=== PATIENT | male | born 1995 | race Caucasian/White ===

== ENCOUNTER 2017-02-02 11:34 | Inpatient (IN) | payer OTHER ==
[~2017-02-02] VITALS: Ht 170.2 cm; Wt 80.0 kg
[2017-02-02 13:24] LABS: MEAN CORPUSCULAR HEMOGLOBIN 28.4 pg (27.0-33.0); MEAN CORPUSCULAR HGB CONC 35.2 g/dl (32.0-36.5); MEAN CORPUSCULAR VOLUME 80.7 fl (80.0-96.0); RED CELL DISTRIBUTION WIDTH 12.5 % (11.5-14.5); WHITE BLOOD COUNT 6.5 10^3/uL (4.0-10.0)
[2017-02-02 13:50] LABS: METHADONE URINE NEGATIVE (NEGATIVE)
[2017-02-02 13:55] LABS: ALBUMIN 4.2 GM/DL (3.2-5.2); ALBUMIN/GLOBULIN RATIO 1.27 (1.00-1.93); ALKALINE PHOSPHATASE 94 U/L (45-117); ALT/SGPT 23 U/L (12-78); ANION GAP 6 MEQ/L (8-16); AST/SGOT 19 U/L (15-37); BILIRUBIN,DIRECT 0.3 MG/DL (0.0-0.2); BILIRUBIN,TOTAL 1.5 MG/DL (0.2-1.0); BLOOD UREA NITROGEN 18 MG/DL (7-18); CALCIUM LEVEL 9.1 MG/DL (8.5-10.1); CARBON DIOXIDE LEVEL 30 MEQ/L (21-32); CHLORIDE LEVEL 103 MEQ/L (98-107); CREATININE FOR GFR 1.01 MG/DL (0.70-1.30); GLUCOSE, FASTING 105 MG/DL (70-105); POTASSIUM SERUM 3.7 MEQ/L (3.5-5.1); SODIUM LEVEL 139 MEQ/L (136-145); TOTAL PROTEIN 7.5 GM/DL (6.4-8.2)
[2017-02-02 16:05] VITALS: BP 143/74
[2017-02-02 16:33] VITALS: BP 143/74
[2017-02-02] MEDS ORDERED: MOM 30ML SUSPENSION UDC PO PRN (17:15)
[2017-02-02] MEDS ORDERED: MAALOX 30 ML SUSP *UDC PO PRN (17:15)
[2017-02-02] MEDS ORDERED: traZODone 50 MG TAB PO PRN (17:15)
[2017-02-03 06:26] VITALS: BP 125/72
--- NOTE | 2017-02-03 10:14 | HPEPDOC ---
[facility] Medical History & Physical Date of Admission Feb 02, 2017 History and Physical PCP: [facility] ATTENDING: Dr. Mo Truong HPI:22yoM admitted to [facility] for depressive disorder, being medically examined today. No acute medical complaints today. Denies any fevers, chills, weakness, fatigue, MERINO, CP, SOB, cough, palpitations, abdominal pain, N/V/D or changes in bowel or bladder habits. PMHx: Depression Chronic right hip pain PSHX: Denies SOCHX: Resides in: [facility], from [place] Marital Status: Single Kids: None Employment: Active duty Tobacco use: Denies ETOH: Denies Illicit Drugs: Denies IV Drug Use: Denies Tattoos done unprofessionally: Denies FAMHX: Mother: Alive, well Father: Alive, well Siblings: Alive, well Children: None Unexpected deaths due to medical reasons: None. ROS: As noted in HPI, otherwise 11pt ROS of systems reviewed and remarkable only for chronic right hip pain which the patient states is controlled with Tylenol and stretching exercises as needed. PE: GEN: 22 yo M, appears stated age. Well-nourished, well developed. No acute distress. Alert and oriented x 3. Pleasant, interactive. HEENT: Normocephalic, atraumatic. Pupils are equal, round, and reactive to light. Extraocular movements are intact. No nystagmus appreciated. Sclera are nonicteric. Conjunctiva without injection. Nose midline. Nasal turbinates without bogginess. EACs both patent BL. TMs both visualized and scott with good cone of light, no bulging or erythema. No facial asymmetry. Moist mucous membranes. Dentition fair. Pharynx pink and moist, no cobblestoning. Neck supple , trachea midline. No lymphadenopathy or thyromegaly appreciated. CHEST: Regular rate and rhythm, +S1, +S2 LUNGS: Clear to auscultation bilaterally. No wheezes, rales, or rhonchi. Breathing appears symmetric and easy. Patient is speaking in full sentences. No accessory muscle use. ABD: Round, soft, non-tender, non-distended. +Bowel sounds throughout. No rebound or guarding. No costovertebral angle tenderness. EXT: Pulses 2+ bilaterally dorsalis pedis and radial. No lower extremity edema appreciated. SKIN: [place], dry, warm. Capillary refill <2sec. No rashes. NEURO: Alert and oriented x 3. Cranial nerves III-XII are intact. No focal deficits appreciated. EKG: Pending. A&P: 22yoM admitted to [facility] for depressive disorder 1. Psych. Plan per Psychiatry. Obtain baseline EKG to assure the safety of psychiatric medications as they can prolong the QT interval. 2. Chronic right hip pain. Continue Tylenol as needed. 3. Follow up with PCP on discharge. 4. Staff member Marcell present throughout exam. Vital Signs Vital Signs Date Time Temp Pulse Resp B/P (MAP) Pulse Ox O2 Delivery O2 Flow Rate FiO2 02/03/17 06:26 97.7 73 20 125/72 (89) 02/02/17 16:33 95 Room Air Laboratory Data Labs 24H Laboratory Tests 2 02/02/17 13:10: Nucleated Red Blood Cells % (auto) 0.0, Anion Gap 6L, Calcium Level 9.1, Aspartate Amino Transf (AST/SGOT) 19, Alanine Aminotransferase (ALT/SGPT) 23, Alkaline Phosphatase 94, Total Bilirubin 1.5H, Direct Bilirubin 0.3H, Total Protein 7.5, Albumin 4.2, Albumin/Globulin Ratio 1.27, Thyroid Stimulating Hormone (TSH) 1.550, Salicylates Level < 1.7L, Urine Amphetamines Screen NEGATIVE, Urine Benzodiazepines Screen NEGATIVE, Urine Opiates Screen NEGATIVE, Urine Methadone Screen NEGATIVE, Acetaminophen Level < 2.0L, Urine Barbiturates Screen POSITIVEH, Urine Phencyclidine Screen NEGATIVE, Urine Cocaine Metabolite Screen NEGATIVE, Urine Cannabinoids Screen NEGATIVE, Ethyl Alcohol Level < 0.003 CBC/BMP Laboratory Tests 02/02/17 13:10 Red Blood Count 5.49, Mean Corpuscular Volume 80.7, Mean Corpuscular Hemoglobin 28.4, Mean Corpuscular Hemoglobin Concent 35.2, Red Cell Distribution Width 12.5 Home Medications No Active Prescriptions or Reported Meds Allergies Coded Allergies: No Known Allergies (Unverified , 02/02/17) Dee Cuevas Feb 03, 2017 10:14
--- NOTE | 2017-02-03 11:55 | MHHPEPDOC ---
[facility] History & Physical History and Physical DATE OF ADMISSION: Feb 02, 2017 at 14:36 LEGAL STATUS AT ADMISSION: 9.39. 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 Brought in to [facility] ED on 02/02/17 by an NCO after getting only an hour sleep on Wednesday night. 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 Says he's had these thoughts for 6 or 7 months, but infrequently and that Wednesday it got really "bad". Told his NCO and first Sergeant, and was calmed down by them. Says he has not had the thoughts since yesterday afternoon. The thoughts revolve around worthlessness and that he thinks he would be better off not here. He says the thoughts started when he got to [place]. Says he doesn't get along with his platoon and the environment of "organized chaos" of the army is too much for him. Says he has been having "depression" for the last 6 months , most days of the week. And says he gets yelled at and told he's a problem child. Says his appetite is "on and off" and sometimes he has to force himself to eat, says he has been having 4-5 hours sleep a night, says he's lost interest in some of his hobbies including video games and reading. Says fake "positivity" leads to good positivity. PSYCHIATRIC REVIEW OF SYSTEMS: Affective: Depression for last 6 months and Suicidal ideations without plan for the last 6 or 7 months. But the SI got worse starting Wednesday. Anxiety: Says he has had severe anxiety over the last few days causing him to loose sleep. Looks outside window to observe his surroundings. Trauma: Denies Psychosis: Denies Personality: Denies PAST PSYCHIATRIC HISTORY: Prior Psychiatric Disorder: ADHD as a child Outpatient Treatment: [facility], went once and he was told he was good. Suicidal/Self injurious: denies Psychotropic Medication History: Dexmethylphenidate ALLERGIES: Please see below. FAMILY PSYCHIATRIC HISTORY: denies SOCIAL HISTORY: Early Relations/development: Grew up in [place] in a family with parents. Says no family problems apart from mild arguing. Good relationships with family/siblings. Sibling order: Middle child, 1 older sister, 1 younger brother Paternal relationships: Dad is like role model. Education: finished high school, wants to go to college Occupational: Active duty in the army. Legal: none Martial: single Economic: supports self through , family support if needed. Supports: family support, few friends in the army Abuse/trauma: denies SUBSTANCE ABUSE HISTORY: denies PAST MEDICAL/SURGICAL HISTORY: none VITAL SIGNS: Temperature 97.4, pulse 86, respiratory rate 12, blood pressure 147 /84, pulse oximetry 99% on room air. MENTAL STATUS EXAMINATION: General appearance: Patient is a 22-year old male, who is in nad, well groomed, cooperative, makes good eye contact. Speech: spontaneous, increased rate, normal rhthym, normal volume Thought processes: linear, logical Thought content: Denies current SI/HI,AVH, paranoia, delusions Abstract reasoning and computation: Good Description of associations: Good Description of abnormal or psychotic thoughts: none Judgment: fair Insight: fair Orientation: a/O x 3 Recent and remote memory: Intact Attention span and concentration: Good Fund of knowledge: average Mood: "pretty good, trying to stay happy" Affect: euthymic, mood congruent DIAGNOSES: 1. MDD moderate, recurrent 2 ADHD per Hx ASSESSMENT: Patient says he has been more anxious, depressed and suicidal without plan for the last couple weeks than usual. He has had these symptoms for approximately the last 6 months, with occasional suicidal ideation. He meets the criteria for MDD and should be monitored for safety. He also has a history of ADHD and on exam is very fidgety/looks around constantly consistent with the presentation of ADHD. He also mentions he has short periods of hyperactivity. Says he's able to control his ADHD symptoms since high school and it doesn't impair him from work/social activities despite not being on medication. Patient will benefit from being started on Zoloft 50 mg daily PO for MDD. PROBLEM LIST: 1. Depression 2. Anxiety INITIAL TREATMENT PLAN: 1. Patient was admitted on a 9. 2. Complete history was obtained. 3. With patients permission, family will be contacted and database will be expanded. 4. Patients medication regimen will be reviewed and changed accordingly. 5. Patient will be provided with protected environment. 6. Patient will be treated with individual, group, and milieu therapies. 7. Patient will receive supportive psych-education. 8. Discharge planning will commence immediately. 9. Outpatient follow-up treatment will be strongly recommended. 10. The initial treatment plan will focus initially on: * Depression/anxiety. * Risk for suicide. * Substance abuse. ESTIMATED LENGTH OF STAY: 2-10 DAYS. TIME SPENT COUNSELING AND COORDINATING INITIAL CARE: 60 minutes. Laboratory Data 24H Labs Laboratory Tests 2 02/02/17 13:10: Nucleated Red Blood Cells % (auto) 0.0, Anion Gap 6L, Calcium Level 9.1, Aspartate Amino Transf (AST/SGOT) 19, Alanine Aminotransferase (ALT/SGPT) 23, Alkaline Phosphatase 94, Total Bilirubin 1.5H, Direct Bilirubin 0.3H, Total Protein 7.5, Albumin 4.2, Albumin/Globulin Ratio 1.27, Thyroid Stimulating Hormone (TSH) 1.550, Salicylates Level < 1.7L, Urine Amphetamines Screen NEGATIVE, Urine Benzodiazepines Screen NEGATIVE, Urine Opiates Screen NEGATIVE, Urine Methadone Screen NEGATIVE, Acetaminophen Level < 2.0L, Urine Barbiturates Screen POSITIVEH, Urine Phencyclidine Screen NEGATIVE, Urine Cocaine Metabolite Screen NEGATIVE, Urine Cannabinoids Screen NEGATIVE, Ethyl Alcohol Level < 0.003 CBC/BMP Laboratory Tests 02/02/17 13:10 Red Blood Count 5.49, Mean Corpuscular Volume 80.7, Mean Corpuscular Hemoglobin 28.4, Mean Corpuscular Hemoglobin Concent 35.2, Red Cell Distribution Width 12.5 Medications No Active Prescriptions or Reported Meds Allergies Coded Allergies: No Known Allergies (Unverified , 02/02/17) MARTHA RODRIGUEZ PGY-1 Feb 03, 2017 11:55
[2017-02-03] MEDS: ACETAMINOPHEN TAB 650MG DOSE (2X325MG) PO PRN (12:59)
[2017-02-03] MEDS: SERTRALINE HCL 50 MG TAB PO SCH (12:59)
--- NOTE | 2017-02-03 16:39 | ECGEPIP ---
Stationary ECG Study [facility] Test Date: 2017-02-03 Pat Name: CAL WAITE Department: Room: [place] [address] Gender: M Scheduling Analyst: PETER : 1995 Requested By: Dee Cuevas Order Number: [id number] Reading MD: Mo Saldana Measurements Intervals [place] Rate: 56 P: 66 CT: 146 QRS: 55 QRSD: 95 T: 44 QT: 391 QTc: 379 Interpretive Statements SINUS BRADYCARDIA EARLY REPOLARIZATION No prior ECG available for comparison at the time of interpretation. Electronically Signed On 02-03-2017 16:39:20 EDT by Mo Saldana
[2017-02-03 18:27] VITALS: BP 128/78
[2017-02-04 06:00] VITALS: BP 142/59
[2017-02-04] MEDS: SERTRALINE HCL 50 MG TAB PO SCH (09:14)
--- NOTE | 2017-02-04 09:56 | MHIPNPDOC ---
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 Brought in to [facility] ED on 02/02/17 by an NCO after getting only an hour sleep on Wednesday night. 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 Says he's had these thoughts for 6 or 7 months, but infrequently and that Wednesday it got really "bad". Told his NCO and first Sergeant, and was calmed down by them. Says he has not had the thoughts since yesterday afternoon. The thoughts revolve around worthlessness and that he thinks he would be better off not here. He says the thoughts started when he got to [place]. Says he doesn't get along with his platoon and the environment of "organized chaos" of the army is too much for him. Says he has been having "depression" for the last 6 months, most days of the week. And says he gets yelled at and told he's a problem child. Says his appetite is "on and off" and sometimes he has to force himself to eat, says he has been having 4-5 hours sleep a night, says he's lost interest in some of his hobbies including video games and reading. Says fake "positivity" leads to good positivity. Interval History 02/04/17: Patient denies SI/HI,AVH, paranoia, delusions. He is moving around during the exam, likely due to his ADHD. Denies anxiety or depressed. Noticed he had a limp while walking; he mentions that tore some cartilage in his R hip during training, [facility] has him on physical restrictions so he can heal. Says he has no pain and he is doing exercises with his physical therapy doctor at [facility]. VITAL SIGNS: See below. NEW TEST RESULTS: EKG 02/03/17, sinus bradycardia, early repolarization. CURRENT MEDICATIONS: See below. MENTAL STATUS EXAMINATION: Patient is a 22-year old male, who is in nad, well groomed, good eye contact. Speech: Is normal rate, rhythm, volume Language skills are intact Thought processes including: linear, logical Thought content: Denies, SI,HI,AVH,paranoia, delusions Abstract reasoning, and computation: Good Description of associations: Description of abnormal or psychotic thoughts: None Judgment: Improving Insight: Improving Orientation: A/O x 3 Recent and remote memory: Intact Attention span and concentration: Fair Language: Appropriate Fund of knowledge: Average Mood: "pretty good" Affect: mildly anxious DIAGNOSES: 1. MDD, moderate, recurrent 2 ADHD per Hx ASSESSMENT: Patient says he's socializing and has been going to most of his groups. Says his mood has improved, because he's in a less stressful environment , where he can talk to people. Denies any medication side effects. Says he didn' t need his Trazodone last night. Had bradycardia on EKG. MANAGEMENT PLAN: Continue management/treatment. Continue to monitor for medication side effects/safety. Ordered a PT consult for assessment/treatment R hip. Switched trazodone for Seroquel 50 mg QHS PRN, due to his bradycardia seen on EKG. TIME SPENT: 15 minutes. Vital Signs Vital Signs Date Time Temp Pulse Resp B/P (MAP) Pulse Ox O2 Delivery O2 Flow Rate FiO2 02/04/17 06:00 97.7 61 14 142/59 (86) 02/02/17 16:33 95 Room Air Current Medications Current Medications Acetaminophen (Tylenol Tab) 650 mg Q6HP PRN PO HEADACHE or DISCOMFORT Last administered on 02/03/17 12:59; Start 02/02/17 at 17:15; Stop 03/04/17 at 17 :14 Al Hydrox/Mg Hydrox/Simethicone (Mylanta) 30 ml Q4HP PRN PO HEARTBURN/ INDIGESTION; Start 02/02/17 at 17:15; Stop 03/04/17 at 17:14 Home Med (Med Rec Complete!) ASDIRECTED XX ; Start 02/02/17 at 12:30; Stop at 12:32; Status DC Magnesium Hydroxide (Milk Of Magnesia) 30 ml DAILYPRN PRN PO CONSTIPATION; Start 02/02/17 at 17:15; Stop 03/04/17 at 17:14 Sertraline HCl (Zoloft) 50 mg DAILY PO Last administered on 02/04/17 09:14; Start 02/03/17 at 09:00; Stop 03/05/17 at 08:59 Trazodone HCl (Desyrel) 50 mg QHSP PRN PO INSOMNIA Last administered on t 21:34; Start 02/02/17 at 17:15; Stop 03/04/17 at 17:14 Allergies Coded Allergies: No Known Allergies (Unverified , 02/02/17) MARTHA RODRIGUEZ PGY-1 Feb 04, 2017 09:56
[2017-02-04 18:00] VITALS: BP 141/70
[2017-02-04] MEDS ORDERED: QUEtiapine FUMARATE 50 MG TAB PO PRN (20:30)
[2017-02-05 06:45] VITALS: BP 125/67
[2017-02-05] MEDS: SERTRALINE HCL 50 MG TAB PO SCH (08:10)
--- NOTE | 2017-02-05 10:38 | MHIPNPDOC ---
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 Brought in to [facility] ED on 02/02/17 by an NCO after getting only an hour sleep on Wednesday night. 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 Says he's had these thoughts for 6 or 7 months, but infrequently and that Wednesday it got really "bad". Told his NCO and first Sergeant, and was calmed down by them. Says he has not had the thoughts since yesterday afternoon. The thoughts revolve around worthlessness and that he thinks he would be better off not here. He says the thoughts started when he got to [place]. Says he doesn't get along with his platoon and the environment of "organized chaos" of the army is too much for him. Says he has been having "depression" for the last 6 months, most days of the week. And says he gets yelled at and told he's a problem child. Says his appetite is "on and off" and sometimes he has to force himself to eat, says he has been having 4-5 hours sleep a night, says he's lost interest in some of his hobbies including video games and reading. Says fake "positivity" leads to good positivity. Interval History 02/05/17: Patient denies SI/HI,AVH, paranoia, delusions. Says he has mild anxiety. Physical therapy saw him in the afternoon yesterday and taught him stretches improve the R hip region, which he says has been helping him. Said his sleep was difficult to initiate last night, however he got 6 hours of sleep. Says his appetite is "ok". Says his energy is "pretty good". He says he's been going to every group available to him, says he enjoys socializing with the other patients. VITAL SIGNS: See below. NEW TEST RESULTS: none. CURRENT MEDICATIONS: See below. MENTAL STATUS EXAMINATION: Patient is a 22-year old male, who is in nad, well groomed, good eye contact. Speech: Is normal rate, rhythm, volume Language skills are intact Thought processes including: linear, logical Thought content: Denies, SI,HI,AVH,paranoia, delusions Abstract reasoning, and computation: Good Description of associations: not assessed Description of abnormal or psychotic thoughts: None Judgment: Improving Insight: Improving Orientation: A/O x 3 Recent and remote memory: Intact Attention span and concentration: Fair Language: Appropriate Fund of knowledge: Average Mood: "happy" Affect: mildly anxious DIAGNOSES: 1. MDD, moderate, recurrent 2 ADHD per Hx ASSESSMENT: Continues to attend groups. Exercises helping with R hip pain. Says his mood continues to improve because of the "non-hostile" environment. Denies any medication side effects. MANAGEMENT PLAN: Continue management/treatment. Continue to monitor for medication side effects/safety. Increased Seroquel to 100 mg QHS PRN for sleep, since he says he didn't initiate sleep very well with the 50 mg of Seroquel last night. TIME SPENT: 15 minutes. Vital Signs Vital Signs Date Time Temp Pulse Resp B/P (MAP) Pulse Ox O2 Delivery O2 Flow Rate FiO2 02/05/17 06:45 97.1 62 16 125/67 (86) 02/02/17 16:33 95 Room Air Current Medications Current Medications Acetaminophen (Tylenol Tab) 650 mg Q6HP PRN PO HEADACHE or DISCOMFORT Last administered on 02/03/17 12:59; Start 02/02/17 at 17:15; Stop 03/04/17 at 17 :14 Al Hydrox/Mg Hydrox/Simethicone (Mylanta) 30 ml Q4HP PRN PO HEARTBURN/ INDIGESTION; Start 02/02/17 at 17:15; Stop 03/04/17 at 17:14 Home Med (Med Rec Complete!) ASDIRECTED XX ; Start 02/02/17 at 12:30; Stop at 12:32; Status DC Magnesium Hydroxide (Milk Of Magnesia) 30 ml DAILYPRN PRN PO CONSTIPATION; Start 02/02/17 at 17:15; Stop 03/04/17 at 17:14 Quetiapine Fumarate (SEROquel) 50 mg QHS PRN PO SLEEP Last administered on 22:58; Start 02/04/17 at 20:30; Stop 03/06/17 at 20:29 Sertraline HCl (Zoloft) 50 mg DAILY PO Last administered on 02/05/17 08:10; Start 02/03/17 at 09:00; Stop 03/05/17 at 08:59 Trazodone HCl (Desyrel) 50 mg QHSP PRN PO INSOMNIA Last administered on 21:34; Start 02/02/17 at 17:15; Stop 02/04/17 at 09:56; Status DC Allergies Coded Allergies: No Known Allergies (Unverified , 02/02/17) MARTHA RODRIGUEZ PGY-1 Feb 05, 2017 10:38
[2017-02-05 18:00] VITALS: BP 138/63
[2017-02-05] MEDS: ACETAMINOPHEN TAB 650MG DOSE (2X325MG) PO PRN (20:21)
[2017-02-05] MEDS: QUEtiapine FUMARATE 100 MG TAB PO PRN (23:15)
[2017-02-06 06:49] VITALS: BP 132/79
[2017-02-06] MEDS: SERTRALINE HCL 50 MG TAB PO SCH (08:56)
--- NOTE | 2017-02-06 15:22 | MHIPN ---
DATE: 02/06/2017 CHIEF COMPLAINT: Says feels better. SUBJECTIVE: Seen for followup, in the presence of staff, says he feels better, and that he is less depressed, less anxious, he feels it is because he is away from his stress at work. Anticipates that will rise up again once he leaves, and questions his ability to maintain his safety outside the hospital. MENTAL STATUS EXAMINATION: Neat, cooperative. No agitation. No psychomotor retardation. Coherent. Affect is reactive, though a bit restricted. Denies any suicidal thoughts or intents. No homicidal ideas or intents. No evidence of psychosis. Cognition is grossly intact. Judgment questionable, insight fair, possibly improved. ASSESSMENT: 1. Major depressive disorder. 2. Attention deficit hyperactivity disorder by history. Possibly less depressed or anxious, being here has given him an opportunity to reassess matters. PLAN: Continue Zoloft 50 mg daily. Continue encouraging the patient to participate in activities in the unit. There will be a command meeting expected prior to his being discharged. VITAL SIGNS: Blood pressure 132/79, pulse 54, temperature 97.7.
[2017-02-06 18:03] VITALS: BP 138/60
[2017-02-06] MEDS: QUEtiapine FUMARATE 100 MG TAB PO PRN (22:33)
[2017-02-07 06:00] VITALS: BP 142/62
[2017-02-07] MEDS: SERTRALINE HCL 50 MG TAB PO SCH (08:33)
[2017-02-07 18:00] VITALS: BP 136/74
[2017-02-07] MEDS: ACETAMINOPHEN TAB 650MG DOSE (2X325MG) PO PRN (21:47)
[2017-02-07] MEDS: QUEtiapine FUMARATE 100 MG TAB PO PRN (22:31)
[2017-02-08 06:29] VITALS: BP 130/69
[2017-02-08] MEDS: SERTRALINE HCL 50 MG TAB PO SCH (08:22)
[2017-02-08] MEDS ORDERED: SERT50TA PO ×2 (09:07→12:11)
[2017-02-08] MEDS ORDERED: QUET1TAB8 PO ×2 (09:07→12:11)
--- NOTE | 2017-02-08 09:09 | MHDSPDOC ---
[facility] Discharge Summary Discharge Summary DATE OF ADMISSION: Feb 02, 2017 at 14:36 DATE OF DISCHARGE: 02/08/17 DISCHARGE DIAGNOSES: 1. Major Depressive Disorder, Moderate, Recurrent 2. 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 Brought in to [facility] ED on 02/02/17 by an NCO after getting only an hour sleep on Wednesday night. 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 Says he's had these thoughts for 6 or 7 months, but infrequently and that Wednesday it got really "bad". Told his NCO and first Sergeant, and was calmed down by them. Says he has not had the thoughts since yesterday afternoon. The thoughts revolve around worthlessness and that he thinks he would be better off not here. He says the thoughts started when he got to [place]. Says he doesn't get along with his platoon and the environment of "organized chaos" of the army is too much for him. Says he has been having "depression" for the last 6 months, most days of the week. And says he gets yelled at and told he's a problem child. Says his appetite is "on and off" and sometimes he has to force himself to eat, says he has been having 4-5 hours sleep a night, says he's lost interest in some of his hobbies including video games and reading. Says fake "positivity" leads to good positivity. CONSULTANTS INVOLVED: none apart from having physical therapy on 02/04/17 TREATMENT AND PROGRESS ON THE UNIT : The patient was brought in by an NCO on , he was medically cleared and transferred t the same day to the [facility]. He was depressed and anxious with suicidal ideations. Said he wanted out of the . He was started on trazodone 50 mg by mouth daily at bedtime as needed on 02/02/2017 for insomnia. 02/03/2017 EKG done showing sinus bradycardia with early repolarization. 02/03/17 Sertraline HCL 50 mg by mouth daily started for depressive and anxiety symptoms. 02/04/2017 trazodone 50 mg switched for Quetiapine Fumarate 50 mg by mouth at bedtime a needed due to noted sinus bradycardia on EKG. Also on 02/04/2017 physical therapy saw patient for right hip pain and developed an exercise plan. 02/06/2017 increase Seroquel to 100 mg by mouth daily at bedtime since patient not initiating sleep well. Patient states exercises help with his right hip pain. Patient discharged 02/08/2017 home by escort after establishing safety plan. Patient received daily group and individual therapy, vital signs, suicide risk assessment, sleep assessment and pain evaluations during his stay. HOSPITAL COURSE: see above DISCHARGE ASSESSMENT: Patient is in good spirits denies any thoughts of self- harm or depression, but has some anxiety about leaving and going home. She denies any auditory or visual hallucinations or other disturbances of perception. However says he's ready to leave the inpatient unit. Denies any rare or common side effects from his medications including but not limited to: nausea, vomiting, dizziness, headache, stomach pain, constipation, diarrhea or serotonin syndrome. MENTAL STATUS EXAMINATION: Patient is a 22-year old male, who is in nad, well groomed, good eye contact. Speech: Is normal rate, rhythm, volume Language skills are intact Thought processes including: linear, logical Thought content: Denies, SI,HI, AVH, paranoia, delusions Abstract reasoning, and computation: Good Description of associations: not assessed Description of abnormal or psychotic thoughts: None Judgment: Improving Insight: Improving Orientation: A/O x 3 Recent and remote memory: Intact Attention span and concentration: Fair Language: Appropriate Fund of knowledge: Average Mood: "good" Affect: mildly anxious MEDICATIONS ON DISCHARGE: -Quetiapine Fumarate 100 mg by mouth daily at bedtime for insomnia -Sertraline HCL 50 mg by mouth daily for depression PLAN/FOLLOWUP ARRANGEMENTS: Follow Up Care Education Label * Medical * Medical Follow Up [facility] * Therapist JULY LAGOS * Date Feb 09, 2017 * Time 08:20 * Address of Clinic or Practice [facility] * Follow Up Care Education Label * Mental Health Appt 1 * Mental Health 1st Embedded * Security Escort Sneha Debbie * * Additional information Intake CPT Shruti 02/09 11:00 Dr Higgins 02/16 @ 0900 Dr Higgins 02/23 @ 10:00 Medication [place] 03/18 @1230 The amount of time spent in the coordination of care for this patient was approximately 30 minutes. Vital Signs/I&Os Vital Signs Date Time Temp Pulse Resp B/P (MAP) Pulse Ox O2 Delivery O2 Flow Rate FiO2 02/08/17 06:29 97.6 53 18 130/69 (89) 02/02/17 16:33 95 Room Air Medications Scheduled Sertraline Hcl (Sertraline HCl) 50 Mg Tab, 50 MG PO DAILY for DEPRESSION, #7 Scheduled PRN Quetiapine Fumerate (Quetiapine Fumarate) 100 Mg Tab, 100 MG PO QHS PRN for SLEEP, #7 Allergies Coded Allergies: No Known Allergies (Unverified , 02/02/17) MARTHA RODRIGUEZ PGY-1 Feb 08, 2017 09:09
== END 2017-02-08 13:47 | disposition home or self-care (01) | DRG 885 ==
LOC: M ED 11:34 → M ED INP 14:36 → M PSY 15:58
PROVIDERS: ADMIT Psychiatry & Neurology Psychiatry; ATTEND Psychiatry & Neurology Psychiatry
DX: F33.1 Major depressive disorder, recurrent, moderate (principal)